=== PATIENT | female | born 1990 | race Caucasian/White ===

== ENCOUNTER 2019-09-09 18:27 | Emergency (ER) | payer SELFPAY ==
[2019-09-09] MEDS ORDERED: IPRATROPIUM/ALBUTEROL 3 ML VIAL NEB ONE (18:39)
[2019-09-09] MEDS: ASPIRIN TABLET 325 MG TAB PO ONE (18:50)
[2019-09-09] MEDS ORDERED: LEVALBUTEROL NEBS 1.25 MG/3 ML VIAL NEB ONE (18:56)
[2019-09-09] MEDS ORDERED: IPRATROPIUM BROMIDE NEBS 0.5 MG/2.5 ML VIAL NEB ONE ×2 (18:56→18:58)
[2019-09-09] MEDS ORDERED: LEVALBUTEROL NEBS 0.63 MG/3 ML VIAL NEB ONE (18:57)
--- NOTE | 2019-09-09 19:43 | RAD ---
EXAM DESCRIPTION: Chest,2 Views CLINICAL HISTORY: 29 years Female left midlung ronchi COMPARISON: None TECHNIQUE: Two view study of the chest was performed. FINDINGS: Cardiac size is within normal limits. Central vessels are not increased. No infiltrates or effusions seen. No consolidation. No pneumothorax. IMPRESSION: No active disease. Electronically signed by: Kristy Soliz MD 09/09/2019 7:42 PM [employer]
[2019-09-09] MEDS: predniSONE 20 MG TAB PO ONE (20:05)
[2019-09-09] MEDS: AMOXICILLIN & POT CLAVULANATE 875 MG TAB PO ONE (20:05)
--- NOTE | 2019-09-09 20:20 | ED.PDOC ---
History of Present Illness - General Chief Complaint: Chest Pain/[place] Stated Complaint: Chest discomfort Time Seen by Provider: 09/09/19 18:29 Source: patient Exam Limitations: no limitations - History of Present Illness Initial Comments: The patient is a 29-year-old female presented to the emergency room secondary to 2 days of intermittent chest and back pain. She has had a cough. Mildly productive. She has smoked some marijuana recently. She does appear very anxious with pressured speech. She does have a history of other illicit drug use but denies any recent usage. No history of any cardiac issues or pulmonary emboli in the past. She does occasionally feel short of breath. Again she is very anxious. She does have some mild rhonchi and rales to the le ft midlung. She does not smoke. Nares are clear. Posterior oropharynx is clear. She is not hypoxic. She is moderately hypertensive and is supposed to be taking lisinopril but is not currently.Chest pain and upper back pain are sharp and stabbing in nature when they occur. Timing/Duration: other - 2 days Severity: moderate Improving Factors: nothing Worsening Factors: nothing Associated Symptoms: chest pain, cough, shortness of breath Allergies/Adverse Reactions: Allergies NO KNOWN ALLERGY Allergy (Verified 09/09/19 18:30) Home Medications: Ambulatory Orders Amoxicillin & Pot Clavulanate [Augmentin Tab] 875 mg PO BID #10 tab 09/09/19 Lisinopril 20 mg PO DAILY 09/09/19 Review of Systems - Review of Systems Constitutional: States: no symptoms reported EENTM: States: no symptoms reported Respiratory: States: cough, short of breath Cardiology: States: chest pain Gastrointestinal/Abdominal: States: no symptoms reported Genitourinary: States: no symptoms reported Musculoskeletal: States: back pain Skin: States: no symptoms reported Neurological: States: no symptoms reported Past Medical History (General) - Patient Medical History Hx Stroke: No Hx Congestive Heart Failure: No Hx Hypertension: Yes Hx Diabetes: No Hx MRSA: No - Vaccination History Hx Influenza Vaccination: No Hx Pneumococcal Vaccination: No - Social History Hx Tobacco Use: Yes Hx Alcohol Use: Yes Hx Substance Use: Yes - Smokes marijuana; hx of other drug use - quit 2017 - Female History Patient is a Female of Child Bearing Age (10 -59 yrs old): Yes Patient : No Family Medical History - Family History Mother Living Status: Still Living Hx Family Hypertension: Yes Hx Family Cancer: Yes - Cervical Physical Exam - Physical Exam General Appearance: Alert Eye Exam: bilateral normal Ears, Nose, Throat: hearing grossly normal, normal ENT inspection Neck: full range of motion, supple Respiratory: no respiratory distress, no accessory muscle use, other - See history of present illness Cardiovascular/Chest: normal peripheral pulses, regular rate, rhythm, no edema Peripheral Pulses: radial,right: 2+, radial,left: 2+ Gastrointestinal/Abdominal: non tender, soft Rectal Exam: deferred Back Exam: no CVA tenderness, no vertebral tenderness Extremity: normal range of motion, non-tender, normal inspection, no pedal edema, normal capillary refill 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 Skin Exam: normal color Comments: Vital Signs - 24 hr 09/09/19 09/09/19 18:31 19:28 Temperature 99 F Pulse Rate [ 105 H 85 Right Radial] Respiratory 26 H 20 Rate Blood Pressure 153/107 140/90 [Left Arm] O2 Sat by Pulse 94 L 98 Oximetry Laboratory Tests 09/09/19 09/09/19 09/09/19 19:01 19:01 19:01 WBC 11.0 H RBC 4.53 Hgb 11.8 L Hct 36.7 MCV 81.1 MCH 26.0 L MCHC 32.1 L RDW 19.9 H Plt Count 244 MPV 9.3 Absolute Neuts (auto) 8.10 H Absolute Lymphs (auto) 2.00 Absolute Monos (auto) 0.80 Absolute Eos (auto) 0.10 Absolute Basos (auto) 0.10 Neutrophils % 73.2 Lymphocytes % 17.8 L Monocytes % 7.2 Eosinophils % 1.1 Basophils % 0.7 RBC Morphology Stain quality accept PT 10.4 INR 1.05 PTT (SP) 24.5 D-Dimer, Quantitative < 131 L Sodium 139 Potassium 3.6 Chloride 105 Carbon Dioxide 23 Anion Gap 14.6 BUN 14 Creatinine 0.86 BUN/Creatinine Ratio 16.3 Random Glucose 115 H Serum Osmolality 278.9 Calcium 9.3 Magnesium 1.6 L Total Bilirubin 0.3 AST 29 ALT 46 Alkaline Phosphatase 117 Creatine Kinase 154 H CK-MB (CK-2) 4.4 CK-MB (CK-2) % 2.86 Troponin I < 0.02 B-Natriuretic Peptide 28.1 Serum Total Protein 7.2 Albumin 4.1 Globulin 3.1 Albumin/Globulin Ratio 1.3 TSH 1.81 Urine Color Urine Appearance Urine pH Ur Specific Hope Urine Protein Urine Glucose (UA) Urine Ketones Urine Blood Urine Nitrite Urine Bilirubin Urine Urobilinogen Ur Leukocyte Esterase Urine RBC Urine WBC Ur Epithelial Cells Urine Bacteria Urine HCG, Qual Urine Opiates Screen Urine Barbiturates Ur Phencyclidine Scrn U Amphetamin/Meth Scrn U Benzodiazepines Scrn U Cocaine Metab Screen U Cannabinoids Screen 09/09/19 09/09/19 09/09/19 19:01 19:43 19:43 WBC RBC Hgb Hct MCV MCH MCHC RDW Plt Count MPV Absolute Neuts (auto) Absolute Lymphs (auto) Absolute Monos (auto) Absolute Eos (auto) Absolute Basos (auto) Neutrophils % Lymphocytes % Monocytes % Eosinophils % Basophils % RBC Morphology PT INR PTT (SP) D-Dimer, Quantitative Sodium Potassium Chloride Carbon Dioxide Anion Gap BUN Creatinine BUN/Creatinine Ratio Random Glucose Serum Osmolality Calcium Magnesium Total Bilirubin AST ALT Alkaline Phosphatase Creatine Kinase CK-MB (CK-2) CK-MB (CK-2) % Troponin I B-Natriuretic Peptide Serum Total Protein Albumin Globulin Albumin/Globulin Ratio TSH Urine Color Yellow Urine Appearance Clear Urine pH 6.0 Ur Specific Hope 1.015 Urine Protein Negative Urine Glucose (UA) Negative Urine Ketones Negative Urine Blood Negative Urine Nitrite Negative Urine Bilirubin Negative Urine Urobilinogen 0.2 Ur Leukocyte Esterase Negative Urine RBC 0 Urine WBC 0 Ur Epithelial Cells 10-20 Urine Bacteria 0 Urine HCG, Qual Negative Urine Opiates Screen Negative Urine Barbiturates Negative Ur Phencyclidine Scrn Negative U Amphetamin/Meth Scrn Negative U Benzodiazepines Scrn Negative U Cocaine Metab Screen Negative U Cannabinoids Screen Positive H 2 view chest x-ray shows no acute pathology. EKG shows sinus tachycardia 102 bpm. Normal axis. Normal R wave progression. No definitive ST segment or T wave changes indicative of acute ischemia. Normal QT interval. Progress - Progress Progress: 09/09/19 20:22 The patient is a 29-year-old female presenting to the emergency room secondary to what appears to be pleuritic chest pain related to what is likely a small focal pneumonia based upon exam, to the left midlung. It is not large enough to show up on chest x-ray. 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 Laboratory work, EKG and chest x-ray are otherwise reassuring. She needs to avoid smoking. She is going to be placed on Augmentin for the next 5 days. Motrin can be used for discomfort. ER warnings were given for any significant worsening. She does need to follow-up with her primary care doctor early next week for repeat evaluation. [email or web address] reza [phone] Departure - Departure Clinical Impression: Pleurisy Pneumonia Qualifiers: Pneumonia type: due to unspecified organism Laterality: left Lung location: unspecified part of lung Qualified Code(s): J18.9 - Pneumonia, unspecified organism Disposition: Discharge to Home or Self Care Condition: Fair Departure Forms: ED Discharge - Pt. Copy, Patient Portal Self Enrollment Instructions: Pleuritic Chest Pain Diet: regular diet Activity: increase activity as tolerated, other - No smoking Prescriptions: Amoxicillin & Pot Clavulanate [Augmentin Tab] 875 mg PO BID #10 tab Home Medications: Ambulatory Orders Amoxicillin & Pot Clavulanate [Augmentin Tab] 875 mg PO BID #10 tab 09/09/19 Lisinopril 20 mg PO DAILY 09/09/19 Additional Instructions: The patient is a 29-year-old female presenting to the emergency room secondary to what appears to be pleuritic chest pain related to what is likely a small focal pneumonia based upon exam, to the left midlung. It is not large enough to show up on chest x-ray. 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 Laboratory work, EKG and chest x-ray are otherwise reassuring. She needs to avoid smoking. She is going to be placed on Augmentin for the next 5 days. Motrin can be used for discomfort. ER warnings were given for any significant worsening. She does need to follow-up with her primary care doctor early next week for repeat evaluation.
[2019-09-09 20:42] VITALS: BP 148/86; TEMP 98.7; O2SAT 99
== END 2019-09-09 20:40 | disposition home or self-care (01) ==
LOC: ER 18:27
DX: J18.9 Pneumonia, unspecified organism (principal); R09.1 Pleurisy; F12.90 Cannabis use, unspecified, uncomplicated; R00.0 Tachycardia, unspecified; I10 Essential (primary) hypertension; Z87.891 Personal history of nicotine dependence
CPT/HCPCS: 36415; 71046; 80053; 80307; 81001; 81025; 82550; 82553; 83735; 83880; 84443; 84484; 85025; 85379; 85610; 85730; 87502; 93005; J7512; J7614; J7644